=== PATIENT | male | born 1990 | race African-American/Black ===

== ENCOUNTER 2016-09-18 01:23 | Emergency (ER) | payer OTHER ==
[2016-09-18] MEDS ORDERED: Ibuprofen 800 MG TAB ONE (02:01)
== END 2016-09-18 02:15 | disposition home or self-care (01) ==
LOC: NAV ERS 01:23
DX: R11.2 Nausea with vomiting, unspecified (principal); R51 Headache; F31.9 Bipolar disorder, unspecified; F17.210 Nicotine dependence, cigarettes, uncomplicated
CPT/HCPCS: 99283